=== PATIENT | male | born 1965 | race African-American/Black ===

== ENCOUNTER 2022-04-17 19:53 | Emergency (ER) | payer OTHER, SELFPAY ==
--- NOTE | 2022-04-17 19:59 | ED.DENTAL ---
HPI - Dental/Oral General Chief complaint: Dental/Oral Stated complaint: DENTAL PAIN Time Seen by Provider: 04/17/22 20:04 Source: patient Mode of arrival: ambulatory Limitations: no limitations History of Present Illness HPI Narrative: 56-year-old male presents concern for left lower dental pain. Reports pain has been there for about 3 weeks. He reports he has a dentist appointment in several weeks. He has been using ice for pain relief. He denies headache, trouble swallowing, foul taste in his mouth. He reports pain radiates to the lower jaw. He denies fever, body aches, chills, sweats Complaint: tooth pain Related Data Allergies Allergy/AdvReac Type Severity Reaction Status Date / Time No Known Allergies Allergy Verified 04/17/22 20:02 Review of Systems Review of Systems: CONSTITUTIONAL: Denies malaise, chills, sweats, or fever. EYES: Denies visual changes ENT: Denies rhinorrhea, congestion, sinus pain, otalgia or sore throat. Reports left lower dental pain CARDIOVASCULAR: Denies chest pain, palpitations RESPIRATORY: Denies cough or dyspnea. SKIN: Denies rash or itching. MUSCULOSKELETAL: Denies myalgia. NEUROLOGIC: Denies numbness, weakness, or headache. All systems reviewed & are unremarkable except as noted in HPI and below PMFSH Comments At time of signature, agree with nursing past medical, surgical, social and family history. There is no relevant family history pertinent to the presenting complaint Exam Narrative: GENERAL: Well-appearing, well-nourished, and in no acute distress. HEAD: Normocephalic, atraumatic. EYES: PERRLA, sclera clear ENT: Nares clear, turbinates pink, no rhinorrhea or epistaxis. Mucous membranes moist. TM pearly harvey with sharp light reflex bilaterally; no tragal tenderness. Oropharynx without erythema or lesions. Tonsils not enlarged and without exudate. Missing teeth, broken teeth, caries. Erythema and mild edema noted at the base of tooth #21 without any periapical visible abscess noted NECK: Supple. No lymphadenopathy. CHEST: No respiratory distress. Speaks in full sentences. HEART: Regular rate and rhythm. SKIN: Warm, dry, no visible rash. NEURO: Alert and oriented x3. PSYCH: Normal mood and affect Course Course Emergency Course: Patient is aware of diagnosis, understands and agrees to treatment plan. Anticipatory guidance given. Patient agrees to follow-up as directed and is aware of reasons to seek care at the emergency department. Portions of this record may have been created with voice recognition software Level of Care: Express Care Visit Vital Signs Vital signs: Reviewed. MDM - Dental/Oral MDM Narrative Medical decision making narrative: Patients pain and complaint coupled with physical findings are consistant with dentalgia. There are no focal signs of space occupying lesions that are compromising to the airway; no dysphagia, odynophagia, dysphonia, or dyspnea. No uvular deviation or soft palate edema. Patient is non-toxic appearing. The floor of the mouth is soft with no signs of Carlos's Angina; no induration below mandible, no neck pain. Patient is without trismus or drooling and able to swallow secretions. Patient is felt appropriate for discharge home with dental follow up. Differential Diagnosis Differential diagnosis: Likely gingival abscess, dental caries, toothache, dental abscess, fracture of tooth and aphthous ulcer Critical Care Time Critical Care Time Critical Care Time: No Discharge Plan Discharge Clinical Impression: Toothache Patient Disposition: Home, Self-Care Condition: Stable Instructions: Antibiotic Form, Toothache (ED) Additional Instructions: Take antibiotic as directed Avoid temperature extremes May apply heat or ice to the face Gentle brushing and flossing Alternate Tylenol and ibuprofen as needed for pain Follow-up with the dentist as soon as possible Prescriptions: New ibuprofen 800 mg tablet
[2022-04-17 20:05] VITALS: BP 160/97; PULSE 91; RESP 16; TEMP 36.3; O2SAT 99
== END 2022-04-17 20:12 | disposition home or self-care (01) ==
PROVIDERS: Emergency Provider Nurse Practitioner
DX: K08.89 Other specified disorders of teeth and supporting structures (principal)
CPT/HCPCS: 99213; G0463

== ENCOUNTER 2022-04-18 14:30 | Emergency (ER) | payer OTHER, SELFPAY ==
[2022-04-18 14:45] VITALS: BP 151/91; PULSE 70; RESP 14; TEMP 36.4; O2SAT 100
--- NOTE | 2022-04-18 16:21 | ED.DENTAL ---
HPI - Dental/Oral General Chief complaint: Dental/Oral <Corin Davidson PA-C - Last Filed: 04/18/22 16:23> Stated complaint: dental pain <LLOYD Gandhi Last Filed: 04/18/22 16:23> Time Seen by Provider: 04/18/22 15:48 <LLOYD Gandhi Last Filed: 04/18/22 16:23> History of Present Illness HPI Narrative: Patient is a 56-year-old male here for evaluation of left lower dental pain for the past 2 weeks. He has an appointment with a dentist at the end of the month. He has also been seen at 2 urgent care facilities, is currently on a round of antibiotics and has been taking ibuprofen and Tylenol. Denies any difficulty swallowing, facial swelling, fevers or chills. <LLOYD Gandhi Last Filed: 04/18/22 16:23> Related Data Allergies/adverse reactions: Allergies Allergy/AdvReac Type Severity Reaction Status Date / Time No Known Allergies Allergy Verified 04/18/22 14:48 <LLOYD Gandhi Last Filed: 04/18/22 16:23> Review of Systems Review of Systems: Gen.: Denies fevers or chills Eyes: Denies eye pain or visual change ENT: Reports dental pain Respiratory: Denies shortness of breath or cough CV: Denies chest pain or palpitations GI: Denies abdominal pain nausea, emesis or diarrhea denies burning, urgency, frequency or hematuria Musculoskeletal: Denies back pain or muscle pain Neuro: Denies numbness, tingling, weakness or focal weakness Skin: Denies rash Except as documented, all other systems reviewed and negative <LLOYD Gandhi Last Filed: 04/18/22 16:23> Exam Narrative: Gen: Alert, oriented, no acute distress Eyes: EOMI, no icterus Pulm: Respirations even and unlabored, symmetric thorax expansion, no audible stridor or visible cyanosis ENT: Patient has numerous missing teeth. Tooth that is hurting patient is loose. No visible periapical abscess. No trismus. No facial swelling. CV: Regular rate per telemetry GI: No distension, no voluntary/involuntary guarding Neuro: AOx4, moves all extremities without apparent difficulty or weakness, follows commands Skin: No jaundice, no visible bruising, rashes, lesions or wounds on exposed skin Psych: Normal mood/affect, insight/judgement good, adequate fund of knowledge, recent/remote memory intact <Corin Davidson PA-C - Last Filed: 04/18/22 16:23> Course PHOTO PRINTER/PA Physician Supervision For this patient encounter, I reviewed the PHOTO PRINTER or PA documentation, treatment plan, and medical decision making. I was available for consultation as needed. <Dee Recinos MD - Last Filed: 04/23/22 11:36> Vital Signs Vital signs: Vital Signs Temperature 97.6 F 04/18/22 14:45 Pulse Rate 70 04/18/22 14:45 Respiratory Rate 14 04/18/22 14:45 Blood Pressure 151/91 H 04/18/22 14:45 Pulse Oximetry 100 04/18/22 14:45 Oxygen Delivery Room Air 04/18/22 14:45 Temperature 97.6 F 04/18/22 14:45 Pulse Rate 70 04/18/22 14:45 Respiratory Rate 14 04/18/22 14:45 Blood Pressure 151/91 H 04/18/22 14:45 Pulse Oximetry 100 04/18/22 14:45 Oxygen Delivery Room Air 04/18/22 14:45 <Corin Davidson PA-C - Last Filed: 04/18/22 16:23> Vital Signs Temperature 97.6 F 04/18/22 14:45 Pulse Rate 70 04/18/22 14:45 Respiratory Rate 14 04/18/22 14:45 Blood Pressure 151/91 H 04/18/22 14:45 Pulse Oximetry 100 04/18/22 14:45 Oxygen Delivery Room Air 04/18/22 14:45 Temperature 97.6 F 04/18/22 14:45 Pulse Rate 70 04/18/22 14:45 Respiratory Rate 14 04/18/22 14:45 Blood Pressure 151/91 H 04/18/22 14:45 Pulse Oximetry 100 04/18/22 14:45 Oxygen Delivery Room Air 04/18/22 14:45 <Dee Recinos MD - Last Filed: 04/23/22 11:36> MDM - Dental/Oral MDM Narrative Medical decision making narrative: Patient presents for dental pain due to suspected dental yfn. Patient not immunosuppressed, afebrile and
== END 2022-04-18 16:44 | disposition home or self-care (01) ==
LOC: ANHED 16:34
PROVIDERS: Emergency Provider Emergency Medicine
DX: K08.89 Other specified disorders of teeth and supporting structures (principal)
CPT/HCPCS: 99283